=== PATIENT | female | born 1955 | race Caucasian/White ===

== ENCOUNTER 2016-09-21 04:44 | Emergency (ER) | payer OTHER ==
[~2016-09-21] VITALS: Ht 160 cm; Wt 90.7 kg
[~2016-09-21 04:44] MED LIST: AGGRENOX 25 MG1 EACH PO; AMLODIPINE10 MG PO; ASPIR 8181 MG PO; ATORVASTATIN CA80 MG PO; CIPRO500 M1 PO; DEXTROSE IV; GLUCOPHAGE1000 MG PO; GLUCOPHAGE500 MG PO; HEPARIN 2525000 UNIT IV; IBUPROFEN600 M1 PO; IBUPROFEN800 M1 PO; JANUMET 1000 MG1 TAB PO; LANTUS100 U/ML SC; LIPITOR80 MG PO; LISINOPRIL5 M1 PO; LOPRESSOR 12.12.5 MG PO; LOPRESSOR50 MG PO; LOTREL 10 MG-401 CAP PO; METFORMIN ER500 MG PO; METOPROLOL SUCC50 M1 PO; MULTIVITAMIN1 TAB PO; NITROGLYCERIN D25 MG IV; NITROSTAT 0.4MG1 BO2 SL; NOVOLIN R1000 UNIT2 SC; ONDANSETRON2 MG/ML IV; PERCOCET 5-3251 EACH PO; PLAVIX 75MG TAB75 MG PO; PRAVASTATIN20 MG PO; PRINIVIL10 MG PO; PROTONIX 40MG T40 MG PO; SODIUM CHLORIDE IV; ZOFRAN ODT4 M1 PO; ZOFRAN ODT4 M1 SL
[2016-09-21 04:53] VITALS: BP 152/92
[2016-09-21] MEDS ORDERED: ULTRAM50 M1 PO (05:15)
[2016-09-21] MEDS ORDERED: IBUPROFEN600 M1 PO (05:15)
[2016-09-21] MEDS ORDERED: BACLOFEN10 M1 PO (05:15)
--- NOTE | 2016-09-21 05:17 | ED NECK/BACK PAIN COMPLAINT ---
History of Present Illness General Chief Complaint: Lower Extremity Problems Stated Complaint: RIGHT LEG PAIN Source: patient, old records Exam Limitations: no limitations Vital Signs & Intake/Output Vital Signs & Intake/Output Vital Signs Date Time Temp Pulse Resp B/P Pulse O2 O2 Flow FiO2 Ox Delivery Rate 09/21 0500 Room Air 09/21 0453 96.9 70 16 152/92 99 Room Air Allergies Coded Allergies: NO KNOWN ALLERGIES (11/15/15) Reconcile Medications Amlodipine Besylate (Amlodipine) 10 MG TAB 1 TAB PO DAILY HEART (Reported) Atorvastatin Calcium (Lipitor) 80 MG TABLET 1 TAB PO DAILY HEART HEALTH ( Reported) Baclofen 10 MG TABLET 1-2 TAB PO TID PRN muscle strain Ciprofloxacin HCl (Cipro) 500 MG TABLET 1 TAB PO BID uti Clopidogrel Bisulfate (Plavix) 75 MG TABLET 1 TAB PO DAILY HEART HEALTH ( Reported) Dipyridamole W/ Aspirin (Aggrenox 25 MG-200 MG Capsule) 1 EACH CPMP.12HR 1 CAP PO BID HEART (Reported) Ibuprofen 800 MG TABLET 1 TAB PO Q6PRN PRN pain Ibuprofen 600 MG TABLET 1 TAB PO Q6PRN PRN pain with food Insulin Glargine, Recombinan (Lantus) 100 U/ML ARGENIS 30 UNITS SC QHS ENDOCRINE (Reported) Lisinopril 5 MG TABLET 1 TAB PO DAILY HEART (Reported) Metformin Hydochloride (Glucophage) 500 MG TAB 3 TAB PO DAILY DM (Reported) Metoprolol Succinate (Metoprolol Succinate XL) [address] 1 TAB PO DAILY HEART (Reported) Ondansetron (Zofran Odt) 4 MG TAB.RAPDIS 1 TAB SL TID PRN nausea Oxycodone HCl/Acetaminophen (Percocet 5-325 MG Tablet) 1 EACH TABLET 1-2 TAB PO Q6-PRN PRN severe pain Tramadol HCl (Ultram) 50 MG TABLET 1-2 TAB PO Q6PRN PRN severe pain Triage Note: 60YO FEMAEL TO TRIAGE W/CO R SIDED PAIN THAT BEGINS IN BUTTOCKS AND TRAVELS DOWN R LEG X 2 D. DENIES ANY TRAUMA OR INJURY. Triage Nurses Notes Reviewed? yes Onset: 2 days Duration: day(s):, constant, continues in ED Timing: recent history Quality/Severity: moderate, radiation, sharpness Location: gluteus Radiation: buttocks, upper legs, lower legs Context: unknown Method of Injury: unknown Loss of Consciousness: no loss of consciousness Modifying Factors: movement, pain medication, rest Associated Symptoms: muscle spasm LMP (ages 10-50): post menopausal : No Patient currently breastfeeds: No HPI: 2 days prior to admission patient was of right buttocks pain radiating to her upper and lower leg described as sharp constant worse with turning bending movement. She denies injury fever chills nausea vomiting diarrhea abdominal pain chest pain shortness breath headache dysuria rash bleeding change in motor sensory function change in bowel bladder habit. Past History Travel History Traveled to [place] past 21 day No Medical History Any Pertinent Medical History? 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 No Review of Systems Review of Systems Constitutional: Reports: no symptoms. Eyes: Reports: no symptoms. Ears, Nose, Throat, Mouth: Reports: no symptoms. Respiratory: Reports: no symptoms. Cardiovascular: Reports: no symptoms. Gastrointestinal/Abdominal: Reports: no symptoms. Musculoskeletal: Reports: see HPI, back pain, muscle pain. Skin: Reports: no symptoms. Neurological/Psychological: Reports: no symptoms. All Other Systems: Reviewed and Negative Physical Exam Physical Exam General Appearance: well developed/nourished, alert, awake, anxious, mild distress, obese Head: atraumatic, normal appearance Eyes: Bilateral: normal appearance, PERRL, EOMI. Ears, Nose, Throat, Mouth: hearing grossly normal, moist mucous membrane Neck: normal inspection, supple, full range of motion, normal alignment Respiratory: normal breath sounds, chest non-tender, no respiratory distress, quiet respiration, lungs clear Cardiovascular: regular rate/rhythm, normal peripheral pulses, norml femoral pulses equa Peripheral Pulses: 4+ carotid (R), 4+ carotid (L) Gastrointestinal: normal bowel sounds, soft, non-tender, no organomegaly Back: normal inspection, normal range of motion, decreased range of motion, muscle spasm, no vertebral tenderness Extremities: non-tender, normal range of motion Straight Leg Raising: Right: Negative. Left: Negative. Sensory: Medial Le: L4R, L4L. Top of Foot: 2: L5R, L5L. Sole of Foot: 2: SIR, MAXIMUS. Motor: Deficit L4 Right: No Deficit L4 Left: No Deficit L5 Right: No Deficit L5 Left: No Deficit S1 Right: No Deficit S1 Right: No DTR: Deficit L4 Left: No Deficit L4 Right: No Deficit S1 Left: No Deficit S1 Right: No Patellar: 3: L4 Right, L4 Left. Neurologic/Psych: awake, alert, oriented x 3, normal mood/affect Skin: intact, normal color, warm/dry Progress Differential Diagnosis: herniated disc, myofascial strain, sciatica Plan of Care: Current Medications Sig/Jean Marie Start time Last Medication Dose Stop Time Status Admin Cyclobenzaprine HCl 10 MG ONCE ONE 09/21 529 UNVr (Flexeril 10MG Tab) 09/21 530 Ibuprofen 600 MG ONCE ONE 09/21 529 UNVr (Motrin) 09/21 530 Departure Departure Time of Disposition: 513 Disposition: HOME OR SELF CARE Condition: Stable Clinical Impression Primary Impression: Piriformis syndrome of right side Referrals: DANIEL MCGHEE APRN (PCP/Family) Departure Forms: Customer Survey General Discharge Information Prescriptions: Current Visit Scripts Ibuprofen 1 TAB PO Q6PRN PRN pain #50 TAB with food Baclofen 1-2 TAB PO TID PRN muscle strain #30 TAB Tramadol HCl (Ultram) 1-2 TAB PO Q6PRN PRN severe pain #30 TAB
== END 2016-09-21 05:23 ==
LOC: ERH 04:44
DX: G57.01 Lesion of sciatic nerve, right lower limb (principal)

== ENCOUNTER 2016-12-29 21:36 | Observation (INO) | payer OTHER ==
[~2016-12-29] VITALS: Ht 160 cm; Wt 90.8 kg
[~2016-12-29 21:36] MED LIST changes: +BACLOFEN10 M1 PO; +ULTRAM50 M1 PO
[2016-12-29 21:59] LABS: ABSOLUTE BASOPHIL COUNT 0 /CUMM (0.0-0.2); ABSOLUTE EOSINOPHIL COUNT 0.2 /CUMM (0.0-0.7); ABSOLUTE GRANULOCYTE CT 3.7 /CUMM (1.4-6.5); ABSOLUTE LYMPH COUNT 1.9 /CUMM (1.2-3.4); ABSOLUTE MONOCYTE COUNT 0.6 /CUMM (0.10-0.60); BASOPHIL % 0.5 % (0.0-2.0); EOSINOPHIL % 2.5 % (0-5); GRANULOCYTE % 58.1 % (42.2-75.2); HEMATOCRIT 38.5 % (37-47); MEAN CORPUSCULAR HGB 29.3 PG (27.0-31.0); MEAN CORPUSCULAR HGB CONC 32.9 G/DL (33.0-37.0); MEAN PLATELET VOLUME 8.5 FL (7.4-10.4); PLATELET COUNT 189 /CUMM (130-400); RBC DISTRIBUTION WIDTH 16.3 % (11.5-14.5); RED BLOOD CELL CT 4.32 /CUMM (4.20-5.40); WHITE BLOOD CELL COUNT 6.4 /CUMM (4.8-10.8)
--- NOTE | 2016-12-29 23:02 | ED CARDIAC/CP/PALPITATIONS ---
History of Present Illness General Chief Complaint: Chest Pain Stated Complaint: CP X 1DAY Source: patient Exam Limitations: no limitations Vital Signs & Intake/Output Vital Signs & Intake/Output Vital Signs Date Time Temp Pulse Resp B/P B/P Pulse O2 O2 Flow FiO2 Mean Ox Delivery Rate 12/30 0105 98.4 76 20 130/80 93 Room Air 12/30 0032 98.6 85 20 110/62 94 Room Air 12/30 0029 Room Air 12/29 2155 88 22 150/83 ED Intake and Output 12/30 0000 12/29 1200 Intake Total Output Total Balance Patient 200 lb Weight Allergies Coded Allergies: NO KNOWN ALLERGIES (11/15/15) Reconcile Medications Amlodipine Besylate 10 MG TABLET 1 TAB PO DAILY BP (Reported) Aspirin (Ecotrin*) 81 MG TABLET.DR 2 TAB PO DAILY HEART/BLOOD (Reported) Atorvastatin Calcium 80 MG TABLET 1 TAB PO QPM CHOLESTEROL (Reported) Dipyridamole W/ Aspirin (Aggrenox 25 MG-200 MG Capsule) 1 EACH CPMP.12HR 1 CAP PO BID HEART (Reported) Insulin Glargine,Hum.rec.anlog (Lantus Solostar) 100 UNIT/ML (3 ML) INSULN.PEN 15 UNIT SC BID DM (Reported) Losartan Potassium 25 MG TABLET 1 TAB PO DAILY BP (Reported) Metformin HCl 500 MG TABLET 2 TAB PO BID DM (Reported) Metoprolol Succinate 50 MG TAB.ER.24H 1 TAB PO DAILY HEART/BP (Reported) Triage Note: PER PT CP X 24 HRS WITH RADIATION TO L ARM. CONSTANT 08/22. Triage Nurses Notes Reviewed? yes Onset: Abrupt Duration: day(s): (1), constant, continues in ED Timing: single episode today Quality/Severity: moderate, pressure Location: substernal Radiation: arms Activities at Onset: activity Prior Chest Pain/Card Workup: cardiac cath, heart attack Nitro Today/Relief: 0.4 mg x 1, provided by ED Aspirin Today: 325 mg x 1, provided by ED Associated Symptoms: nausea/vomiting LMP (ages 10-50): post menopausal : No Patient currently breastfeeds: No HPI: 61-year-old female past medical history of hypertension hyperlipidemia insulin- dependent diabetes and previous UT presents with chest pain. Patient statespain began at 11:30 yesterday morning while she was outside doing yard work and has been constant ever since. Pain is located in the center of her chest and radiates down the left arm to the level of the elbow. There are no alleviating or agony factors. She rates the pain as a 3 out of 10. She has not taken any medicine for the pain. Patient states she had an UT 2 years ago treated with stents. She feels that the pain she has today is very similar to previous UT. She reports associated nausea. No shortness of breath, sweats, chills, anxiety, back pain, abdominal pain or any other associated symptoms. (SAMY SANTAMARIA PA-C) Past History Travel History Traveled to [place] past 21 day No Medical History Any Pertinent Medical History? 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 No (SAMY SANTAMARIA PA-C) Review of Systems Review of Systems Constitutional: Reports: no symptoms. EENTM: Reports: no symptoms. Respiratory: Reports: no symptoms. Cardiovascular: Reports: see HPI, chest pain. GI: Reports: see HPI, nausea. Genitourinary: Reports: no symptoms. Musculoskeletal: Reports: no symptoms. Skin: Reports: no symptoms. Neurological/Psychological: Reports: no symptoms. Hematologic/Endocrine: Reports: no symptoms. Immunologic/Allergic: Reports: no symptoms. All Other Systems: Reviewed and Negative (SAMY SANTAMARIA PA-C) Physical Exam Physical Exam Cardiovascular: regular rate/rhythm, normal peripheral pulses Comments: General: Hemodynamically stable. Afebrile. Well-developed well-nourished person in no acute distress. Head: Atraumatic, normocephalic Eyes: EOMI bilaterally, PERRLA, conjunctiva are not injected, no discharge, no nystagmus, fundus grossly normal bilaterally Nose: Atraumatic, no rhinorrhea, mucosa is not erythematous, no epistaxis. Sinuses are non-tender Ears: TM pearly bains color bilaterally, external canal is clear, no discharge, hearing is normal Mouth: Appropriate dentition, no gingival bleeding, moist mucus membranes, no oral lesions, tonsils not erythematous or enlarged and free of exudate. Uvula rises midline. Neck: Supple, full active ROM, no lymphadenopathy, no midline tenderness to palpation, no thyromegaly, no tracheal deviation. Back: Non-tender, full active ROM, no scoliosis, no CVA tenderness Cardiovascular: regular rate and rhythm, no murmurs, rubs, or gallops. No JVD Respiratory: Chest is nontender. Regular respiratory rate and effort. No accessory muscle use. Lungs clear to auscultation bilaterally. Abdomen: Soft, non-tender, non-distended, no organomegaly. No rebound tenderness or guarding. Normoactive bowel sounds. Extremities: No edema. No gross deformities. No joint swelling. No calf swelling or tenderness. Full active and passive ROM. Strength 5/5 in upper and lower extremities. Peripheral pulses 2+ bilaterally, Patellar DTR 2+ Neuro: No confusion. Motor and sensory function is intact. Appropriate gait. Cerebellar function intact. Skin: Warm and dry. Appropriate turgor. No lesions or bruising. No appreciable rash on exposed skin. Core Measures ACS in differential dx? Yes ASA ordered for poss ACS? Yes-ordered Severe Sepsis Present: No Septic Shock Present: No (HINA REGAN,SAMY) Progress Differential Diagnosis: AMI, aortic dissection, atrial fibrillation, CHF/pulm edema, costochondritis, myocarditis, pericarditis, pneumonia, pneumothorax, pulmonary embolism, unstable angina Plan of Care: Orders Procedure Date/time Status Heart Healthy Diet 12/30 B Active TROPONIN LEVEL 12/30 1000 Active EKG 12/30 1000 Active TROPONIN LEVEL 12/30 0400 Active LIPID PANEL 12/30 0400 Active GLYCOSYLATED HGB 12/30 0400 Active CBC WITHOUT DIFFERENTIAL 12/30 0400 Active BASIC ELECTROLYTES PLUS BUN&CR 12/30 0400 Active EKG 12/30 0400 Active Pathway - chart 12/30 0102 Active House Staff 12/30 0102 Active Patient Data 12/30 010 Active Code Status 12/30 0102 Active Intake & Output 12/30 0029 Active Lab Add-on Test 12/30 UNK Active VTE Mechanical Prophylaxis 12/30 UNK Active Telemetry/Coffee Farmer 12/30 UNK Active FingerStick- Glucose 12/30 UNK Active ECHOCARDIOGRAM 12/30 UNK Active Patient Data 12/29 2339 Active Saline Lock 12/[address] in observation 12/29 233 Active Misc Message 12/29 233 Active ED Holding Orders 12/29 2336 Active Vital Signs 12/29 2336 Active Activity/Ambulation 12/29 233 Active Code Status 12/29 2336 Complete Add-on Test (ER Only) 12/29 2329 Active Add-on Test (ER Only) 12/30 2323 Active Telemetry/Coffee Farmer 12/30 2323 Active URINALYSIS 12/30 2323 Active MAGNESIUM 12/29 2149 Complete B-TYPE NATRIURETIC PEP (BNP) 12/29 2149 Complete TROPONIN LEVEL 12/30 2147 Complete D-DIMER 12/30 2147 Complete COMPREHENSIVE METABOLIC PANEL 12/30 2147 Complete CBC WITHOUT DIFFERENTIAL 12/30 2147 Complete EKG 12/29 2136 Active Current Medications Sig/Jean Marie Start time Last Medication Dose Stop Time Status Admin Atorvastatin Calcium 80 MG QPM 12/30 2200 UNVr (Lipitor) Amlodipine Besylate 10 MG DAILY 12/30 1000 UNVr (Norvasc) Aspirin Buffered 162 MG DAILY 12/30 1000 UNVr (Ecotrin) Dipyridamole/Aspirin 1 CAP BID 12/30 1000 UNVr (Aggrenox) Enoxaparin Sodium 40 MG DAILY 12/30 1000 UNVr (Lovenox) Losartan Potassium 25 MG DAILY 12/30 1000 UNVr (Cozaar) Metoprolol Succinate 50 MG DAILY 12/30 1000 AC (Toprol Xl) Insulin Aspart 0 TIDAC 12/30 0800 UNVr (NovoLOG) Acetaminophen 650 MG Q6P PRN 12/30 0115 UNVr (Tylenol) Ibuprofen 600 MG Q6P PRN 12/30 0115 UNVr (Motrin) Magnesium Oxide 400 MG BID 12/30 0100 UNVr (Mag-Ox) Laboratory Tests 12/29/16 2150: Anion Gap 13, Estimated GFR > 60, BUN/Creatinine Ratio 24.4, Glucose 281 H, Calcium 10.6 H, Magnesium 1.0 L, Total Bilirubin 0.7, AST 32, ALT 49, Alkaline Phosphatase 58, Troponin I < 0.01, Wlc-K-Wsoyuvxrodb Pept 49.8, Total Protein 7.2, Albumin 4.6, Globulin 2.6, Albumin/Globulin Ratio 1.8, CBC w Diff NO MAN DIFF REQ, RBC 4.32, MCV 89.0, MCH 29.3, RDW 16.3 H, MPV 8.5, Gran % 58.1, Lymphocytes % 29.7, Monocytes % 9.2, Eosinophils % 2.5, Basophils % 0.5, Absolute Granulocytes 3.7, Absolute Lymphocytes 1.9, Absolute Monocytes 0.6, Absolute Eosinophils 0.2, Absolute Basophils 0, PUBS MCHC 32.9 L 12/29/16 2148: D-Dimer High Sensitivty < 200 Patient seen and evaluated. She is nontoxic-appearing and stable. First troponin is negative. EKG doesn't show any acute changes. Spoke with Dr. Lazo. Due to patient's significant medical history and chest pain similar to previous UT patient be brought in for observation to rule out acute coronary syndrome. She'll be given 325 of aspirin and nitroglycerin. She will have basic blood work including repeat EKGs and troponins. Patient states she is not feeling better after receiving nitroglycerin AND IT ACTUALLY INCREASED HER PAIN. Patient will be admitted for telemetry for serial troponins and EKGs monitoring of vital signs and cardiology consult. (HINA REGAN,SAMY) Diagnostic Imaging: Viewed by Me: Radiology Read. Discussed w/RAD: Radiology Read. Radiology Impression: PATIENT: WILMA MILLS PRESENT AGE: 61 PATIENT ACCOUNT NO: [id number] : 56 LOCATION: [facility] ORDERING PHYSICIAN: SAMY SANTAMARIA PA-C SERVICE DATE: 12/29/16 EXAM TYPE: RAD - XRY- PORTABLE CHEST XRAY EXAMINATION: XR PORTABLE CHEST CLINICAL INFORMATION: Chest pain, shortness of breath COMPARISON: Chest x-ray 01/03/2015 TECHNIQUE: Portable frontal view of the chest was obtained. 11:26 PM FINDINGS: No significant abnormality is noted involving the heart, lungs, mediastinum, bony thorax or soft tissues. IMPRESSION: Unremarkable examination. DICTATED BY: JHOANA BORGES MD DATE/TIME DICTATED:12/29/162342 PASTER SUPERVISOR:ADRIEN DATE/TIME TRANSCRIBED:12/29/162342 Initial ED EKG: SINUS RHYTHM, FIRST-DEGREE av BLOCK, PROBABLE LEFT ATRIAL ABNORMALITY, LEFT ANTERIOR FASCICULAR BLOCK, ANTERIOR INFARCT AGE INDETERMINATE Prior EKG: unchanged (SAMY SANTAMARIA PA-C) Departure Departure Disposition: STILL A PATIENT Condition: Stable Clinical Impression Primary Impression: Chest pain Qualifiers: Chest pain type: unspecified Qualified Code: R07.9 - Chest pain, unspecified Referrals: DANIEL MCGHEE APRN (PCP/Family) Departure Forms: Customer Survey General Discharge Information Observation Note Rationale for Observation: My rational for observation is as follows . (SAMY SANTAMARIA PA-C) Observation Note Spoke With: SHEILA LAZO MD Physician Advisor Notified: MARY MENDOZA,ABRAN Grimes Place Patient In: Non-ED OBS Care Area Rationale for Observation: My rational for observation is as follows [exertional chest pain with risk factors. Patient to be placed in telemetry observation for cardiology evaluation and serial enzymes.]. PA/LONGWALL SHEARER OPERATOR Co-Sign Statement Statement: ED Attending supervision documentation- [X] I saw and evaluated the patient. I have also reviewed all the pertinent lab results and diagnostic results. I agree with the findings and the plan of care as documented in the PA's/LONGWALL SHEARER OPERATOR's documentation. [X] I have reviewed the ED Record and agree with the PA's/LONGWALL SHEARER OPERATOR's documentation. [] Additions or exceptions (if any) to the PAs/LONGWALL SHEARER OPERATOR's note and plan are summarized below: [] (MARY MENDOZA,ABRAN Grimes) Critical Care Note Critical Care Note Critical Care Time: non-applicable (SAMY SANTAMARIA PA-C)
[2016-12-29] MEDS ORDERED: METOPROLOL SUCC50 M2 PO (23:11)
[2016-12-29] MEDS ORDERED: METFORMIN HCL500 M3 PO (23:11)
[2016-12-29] MEDS ORDERED: LANTUS SOL100 UNIT/1 SC (23:12)
[2016-12-29] MEDS ORDERED: ATORVASTATIN CA80 M1 PO (23:12)
[2016-12-29] MEDS ORDERED: LOSARTAN POTASS25 M1 PO (23:12)
[2016-12-29] MEDS ORDERED: AMLODIPINE BESY10 M1 PO (23:13)
[2016-12-29] MEDS ORDERED: ASPIRIN EC81 M1 PO (23:14)
--- NOTE | 2016-12-29 23:48 | RADIOLOGY REPORT ---
EXAMINATION: XR PORTABLE CHEST CLINICAL INFORMATION: Chest pain, shortness of breath COMPARISON: Chest x-ray 01/03/2015 TECHNIQUE: Portable frontal view of the chest was obtained. 11:26 PM FINDINGS: No significant abnormality is noted involving the heart, lungs, mediastinum, bony thorax or soft tissues. IMPRESSION: Unremarkable examination.
--- NOTE | 2016-12-30 00:30 | History & Physical ---
CHANDNI COATS MD 12/30/16 0029: General Information and HPI MD Statement: I have seen and personally examined WILMA MILLS and documented this H&P. The patient is a 61 year old F who presented with a patient stated chief complaint of chest pain. Source of Information: patient Exam Limitations: no limitations History of Present Illness: 61 year old female with past medical history significant for hypertension, hyperlipidemia, stroke, coronary artery disease and myocardial infarction s/p stent placement presents with chest pain. The patient complaints of chest pain for the past 24 hours. The chest pain waxes and wanes, describes it as pressure like and radiating into the left arm to the level of her elbow. She says this is exactly how her prior myocardial infarction felt a year ago except that radiated all the way to her left hand. She said the chest pain began yesterday after doing yard work but it did not resolve with rest. She denies any cough, dyspnea, diaphoresis, palpitations or fever. She reports slight nausea and headache with the chest pain. She typically has no limitations in terms of her exercise tolerance. Her labor delivery rn is Beto López in [place], reports her last stress test was before her myocardial infarction and can't remember her last echocardiogram. Her neurologist is Ike Torres in [place]. She says she has some residual left sided numbness, tingling and balance problems from her stroke two years ago but is still able to work as a [employer] Her is Haim, . Allergies/Medications Allergies: Coded Allergies: NO KNOWN ALLERGIES (11/15/15) Home Med list Amlodipine Besylate 10 MG TABLET 1 TAB PO DAILY BP (Reported) Aspirin (Ecotrin*) 81 MG TABLET.DR 2 TAB PO DAILY HEART/BLOOD (Reported) Atorvastatin Calcium 80 MG TABLET 1 TAB PO QPM CHOLESTEROL (Reported) Dipyridamole W/ Aspirin (Aggrenox 25 MG-200 MG Capsule) 1 EACH CPMP.12HR 1 CAP PO BID HEART (Reported) Insulin Glargine,Hum.rec.anlog (Lantus Solostar) 100 UNIT/ML (3 ML) INSULN.PEN 15 UNIT SC BID DM (Reported) Losartan Potassium 25 MG TABLET 1 TAB PO DAILY BP (Reported) Metformin HCl 500 MG TABLET 2 TAB PO BID DM (Reported) Metoprolol Succinate 50 MG TAB.ER.24H 1 TAB PO DAILY HEART/BP (Reported) Compliance With Home Meds: GOOD Past History Travel History Traveled to [place] past 21 day No Medical History Neurological: CVA EENT: NONE Cardiovascular: CAD (W STENT), hypertension, hyperlipidemia, myocardial infarction, NSTEMI, CARIAC STENT X 1 Respiratory: NONE Gastrointestinal: NONE Hepatic: NONE Renal: nephrolithiasis Musculoskeletal: NONE Psychiatric: depression Endocrine: diabetes Blood Disorders: NONE Cancer(s): NONE ACCOUNTING RECONCILIATION CLERK/Reproductive: HIGH RISK PREGNANCIES PRE-ECLAMPSIA History of MRSA: No History of VRE: No History of CDIFF: No Surgical History Surgical History: Past Family/Social History Family History Relations & Conditions if any BROTHER FH: heart disease MOTHER FH: heart disease FHx: stroke FATHER FH: heart disease SON FH: heart disease Psychosocial History Who Do You Live With? family Services at Home: None Primary Language: Vietnamese Living Will? no Power of Art Framing Manager/HCP? no Functional Ability ADLs Independent: dressing, eating, toileting, bathing. Ambulation: independent IADLs Independent: shopping, housework, finances, food prep, telephone, transportation , medication admin. Review of Systems Review of Systems Constitutional: Reports: see HPI. Exam & Diagnostic Data Last 24 Hrs of Vital Signs/I&O Vital Signs Date Time Temp Pulse Resp B/P B/P Pulse O2 O2 Flow FiO2 Mean Ox Delivery Rate 12/30 0105 98.4 76 20 130/80 93 Room Air 12/30 0032 98.6 85 20 110/62 94 Room Air 12/30 0029 Room Air 12/29 2155 88 22 150/83 Intake & Output 12/30 0800 12/30 0000 12/29 1600 Intake Total Output Total Balance Patient 200 lb Weight Physical Exam General Appearance Alert, Oriented X3, Cooperative, No Acute Distress Skin No Rashes, No Breakdown Skin Temp/Moisture Exam: Warm/Dry HEENT Atraumatic, PERRLA, EOMI, Mucous Membr. moist/pink Neck Supple, +2 Carotid Pulse wo Bruit Cardiovascular Regular Rate, Normal S1, Normal S2, No Murmurs Lungs Clear to Auscultation, Normal Air Movement Abdomen Normal Bowel Sounds, Soft, No Tenderness, No Masses Neurological Normal Speech, Strength at 5/5 X4 Ext, Normal Tone, Sensation Intact, Cranial Nerves 3-12 NL Extremities No Clubbing, No Edema, Normal Pulses, No Tenderness/Swelling Vascular Normal Pulses, Pulses Symmetrical Last 24 Hrs of Labs/Crow: Laboratory Tests 12/29/160: Anion Gap 13, Estimated GFR > 60, BUN/Creatinine Ratio 24.4, Glucose 281 H, Calcium 10.6 H, Magnesium 1.0 L, Total Bilirubin 0.7, AST 32, ALT 49, Alkaline Phosphatase 58, Troponin I < 0.01, Bol-M-Wsikaptqkro Pept 49.8, Total Protein 7.2, Albumin 4.6, Globulin 2.6, Albumin/Globulin Ratio 1.8, CBC w Diff NO MAN DIFF REQ, RBC 4.32, MCV 89.0, MCH 29.3, RDW 16.3 H, MPV 8.5, Gran % 58.1, Lymphocytes % 29.7, Monocytes % 9.2, Eosinophils % 2.5, Basophils % 0.5, Absolute Granulocytes 3.7, Absolute Lymphocytes 1.9, Absolute Monocytes 0.6, Absolute Eosinophils 0.2, Absolute Basophils 0, PUBS MCHC 32.9 L 12/29/162147: D-Dimer High Sensitivty < 200 Diagnostic Data EKG Results LAFB, 1st degree block CXR Results unremarkable Assessment/Plan Assessment: 61 year old female with past medical history significant for hypertension, hyperlipidemia, stroke, coronary artery disease and myocardial infarction s/p stent placement presents with chest pain. 1. Chest pain: no acute EKG changes, aspirin and nitro given in ED Observe on telemetry for arrhythmia Serial troponins/EKGs to rule out acute coronary syndrome Cardiology consult ASA, metoprolol, losartan, statin, nitro and morphine prn Echocardiogram Possible outpatient stress testing 2. Diabetes: Check hemoglobin A1C Accuchecks TIDAC/HS Hold oral hypoglycemics Insulin sliding scale 3. History of CVA: Continue aggrenox 4. Hypertension: Continue norvasc 10mg PO QD 5. Hyperlipidemia: Check lipid panel Continue lipitor 80mg PO QD Heart healthy DVT ppx-lovenox Full code As Ranked By This Provider Problem List: 1. Chest pain Qualifiers Chest pain type: unspecified Qualified Code: R07.9 - Chest pain, unspecified 2. CAD (coronary artery disease) 3. Diabetes 4. Hyperlipidemia 5. Hypertension Core Measures/Miscellaneous Acute Coronary Syndrome ACS Diagnosis: No Cerebrovascular Accident CVA/TIA Diagnosis: No Congestive Heart Failure CHF Diagnosis: No VTE (View Protocol) VTE Risk Factors: Acute medical illness, Age > 40 [facility] prophylaxis d/t: No contraindications No VTE Pharm Prophylaxis d/t: No contraindications VTE Diagnosis: No VTE Type: NONE VTE Confirmed by (Test): NONE Sepsis (View Protocol) Severe Sepsis Present: No Septic Shock Septic Shock Present: No Miscellaneous Documentation Attending Case Discussed With: SHEILA LAZO MD Primary Care Physician: DANIEL MCGHEE APRN Patient sees these Specialists cardiology/neurology Level of Patient Care: Telemetry MICHEL WALKER 12/30/16 0107: Resident Review Statement Resident Statement: examined this patient, discussed with unpaid intern, agreed with unpaid intern Other Findings: Patient is 61-year-old female with past medical history significant for hypertension, dyslipidemia, CAD status post stent placement in 2014, history of CVA with residual gait imbalance in 2016 came with chief complaint of off and on substernal chest pain since yesterday when she was working outside in her backyard. Her chest pain for 3 out of 10 and it was radiating to left arm onto her elbow and she perceived as similar when she had last heart attack. She denied any nausea, vomiting, palpitations, dizziness, shortness of breath, any urinary or bowel complaints. Her symptoms were concerning to her that she decided to come to ER. Vital signs on admission were temperature 98.6, pulse 88, respiratory rate 22, blood pressure 150/83 and she was saturating 94% on room air. Labs were WBC count 6.4, hemoglobin 12.7, hematocrit 35, platelet count 189, Sodium 139, potassium 3.8, BUN/creatinine 22, creatinine 0.9, blood sugar 281, magnesium 1.0, initial troponin was negative EKG showed no acute ST-T wave changes Chest x-ray was normal Physical examination Alert and oriented 3 Head atraumatic Neck supple no JVD Chest dated auscultate Heart S1-S2 normal with no added sounds Abdomen soft with no organomegaly Extremities showed no edema or cyanosis Neurological examination showed no neurological deficit Assessment and plan 61-year-old female with history of hypertension, insulin-dependent diabetes, dyslipidemia came with chief complaint of substernal chest pain, no EKG changes and negative troponins but given her history we will observe patient on telemetry floor for 24 hours to rule out ACS Problem list 1. Substernal chest pain ACS next to rule out 2. History of CAD 3. History of hypertension 4. History of his with dependent diabetes 5. History of CVA Plan We will keep patient on telemetry floor for 24 hour observation We will trend troponins and EKG A cardiology evaluation in a.m. Patient was given aspirin and nitroglycerin in ED We will give patient nitroglycerin to keep her pain-free as needed We will continue all her home medications including WEI inhibitor as, metoprolol , aspirin, Aggrenox, Accu-Cheks We will hold metformin and will start patient on NovoLog according to sliding scale We will send lipid profile and hemoglobin A1c We will do echocardiogram Patient might need inpatient/outpatient stress test Heart healthy diet Pharmacological DVT prophylaxis Patient is full code SHEILA LAZO MD 12/30/16 0922: Attending MD Review Statement Attending Statement Attending MD Statement: examined this patient, discuss w/resident/PA/ACUTE COORDINATOR, agreed w/resident/PA/ACUTE COORDINATOR, discussed with family, reviewed EMR data (avail), discussed with nursing, reviewed images, amended to note Attending Assessment/Plan: The patient is a 61-year-old female with history of coronary artery disease, hypertension, hyperlipidemia, and CAD. She had a myocardial infarction and stent placement 2 years ago. Her labor delivery rn is Dr. Douglas in [place]. She presents with complaint of chest pain. She was working in her chart, when she developed pressure radiating to the left arm. Was present for much of the day and continued through most of the night. It was a 7 out of 10 in severity. She is now pain-free. She has not had a stress test since prior to her myocardial infarction 2 years ago. No syncope. No orthopnea. No palpitations. Review of systems: No fever. No chills. No rash. No tremor. All other systems were reviewed, and were noted to be negative. Laboratory Tests 12/30 12/30 1010 0830 Chemistry Troponin I (< 0.11 ng/ml) 0.06 Urines Urine Color (YEL,AMB,STR) YEL Urine Clarity (CLEAR) CLEAR Urine pH (5.0 - 8.0) 6.0 Ur Specific Mammoth (1.001 - 1.035) 1.025 Urine Protein (NEG,<30 MG/DL) NEG Urine Ketones (NEG) TRACE H Urine Nitrite (NEG) NEG Urine Bilirubin (NEG) NEG Urine Urobilinogen (0.1 - 1.0 EU/dl) 0.2 Ur Leukocyte Esterase (NEG) NEG Ur Microscopic EXAM NOT REQUIRED Urine Hemoglobin (NEG) NEG Urine Glucose (N MG/DL) >=1000 H 12/30 12/29 0410 2150 Chemistry Sodium (137 - 145 mmol/L) 140 139 Potassium (3.5 - 5.1 mmol/L) 4.1 3.8 Chloride (98 - 107 mmol/L) 103 100 Carbon Dioxide (22 - 30 mmol/L) 23 25 Anion Gap (5 - 16) 13 13 BUN (7 - 17 mg/dL) 20 H 22 H Creatinine (0.5 - 1.0 mg/dL) 0.7 0.9 Estimated GFR (>60 ml/min) > 60 > 60 BUN/Creatinine Ratio (7 - 25 %) 28.6 H 24.4 Glucose (65 - 99 mg/dL) 281 H Hemoglobin A1c (4.2 - 5.8 %) 10.4 H Calcium (8.4 - 10.2 mg/dL) 10.6 H Magnesium (1.6 - 2.3 mg/dL) 1.0 L Total Bilirubin (0.2 - 1.3 mg/dL) 0.7 AST (14 - 36 U/L) 32 ALT (9 - 52 U/L) 49 Alkaline Phosphatase (<127 U/L) 58 Troponin I (< 0.11 ng/ml) 0.02 < 0.01 Cpy-D-Cbhetkhvguf Pept (<125 pg/mL) 49.8 Total Protein (6.3 - 8.2 g/dL) 7.2 Albumin (3.5 - 5.0 g/dL) 4.6 Globulin (1.9 - 4.2 gm/dL) 2.6 Albumin/Globulin Ratio (1.1 - 2.2 %) 1.8 Triglycerides (<150 mg/dL) 246 H Cholesterol (<200 MG/DL) 163 LDL Cholesterol, Calc (65 - 129 mg/dL) 64 L HDL Cholesterol (40 - 60 mg/dL) 50 Cholesterol/HDL Ratio (0.00 - 4.23 %) 3 25-OH Vitamin D Total (30 - 100 ng/ml) 25.9 L PTH Intact (13.8 - 85 pg/ml) 18.7 Hematology CBC w Diff NO MAN DIFF REQ NO MAN DIFF REQ WBC (4.8 - 10.8 /CUMM) 7.4 6.4 RBC (4.20 - 5.40 /CUMM) 4.19 L 4.32 Hgb (12.0 - 16.0 G/DL) 12.4 12.7 Hct (37 - 47 %) 37.4 38.5 MCV (81.0 - 99.0 FL) 89.2 89.0 MCH (27.0 - 31.0 PG) 29.7 29.3 RDW (11.5 - 14.5 %) 15.9 H 16.3 H Plt Count (130 - 400 /CUMM) 172 189 MPV (7.4 - 10.4 FL) 9.0 8.5 Gran % (42.2 - 75.2 %) 57.0 58.1 Lymphocytes % (20.5 - 51.1 %) 30.5 29.7 Monocytes % (1.7 - 9.3 %) 10.0 H 9.2 Eosinophils % (0 - 5 %) 1.9 2.5 Basophils % (0.0 - 2.0 %) 0.6 0.5 Absolute Granulocytes (1.4 - 6.5 /CUMM) 4.2 3.7 Absolute Lymphocytes (1.2 - 3.4 /CUMM) 2.2 1.9 Absolute Monocytes (0.10 - 0.60 /CUMM) 0.7 H 0.6 Absolute Eosinophils (0.0 - 0.7 /CUMM) 0.1 0.2 Absolute Basophils (0.0 - 0.2 /CUMM) 0 0 PUBS MCHC (33.0 - 37.0 G/DL) 33.3 32.9 L 12/29 2148 Coagulation D-Dimer High Sensitivty (0 - 243 ng/ml) < 200 Physical examination: Gen: The patient is in no acute distress HEENT: Normal nose, ears, and oropharynx. Pupils equal bilaterally. Conjunctiva normal. Neck: Supple with no JVD, no masses, and no thyromegaly Lungs: Clear to auscultation with normal respiratory effort Heart: RRR, S1, S2, 1/6 systolic murmur. No peripheral edema, 2+ pulses in the lower extremities bilaterally Abdomen: Soft, nontender, no masses. No hepatomegaly. No splenomegaly Extremities: No clubbing or cyanosis. Normal muscle strength in the upper and lower extremities Skin: Normal skin turgor with no skin ulcers or lesions noted. Neuro: Cranial nerves intact. Sensation intact Psych: Alert and oriented 3 with appropriate affect Chest x-ray: Negative EKG tracing is independently reviewed, and reveals normal sinus rhythm with no acute ischemic changes Assessment: 1. History of known CAD 2. History of CVA 3. Chest pain, rule out acute coronary syndrome Plan: * Check third troponin to rule out myocardial infarctions * Exercise nuclear stress test * Into cardiac medications. * If no significant ischemia is seen on the stress test, and the third troponin is negative, we will discharge the patient to home. * Follow up with Dr. Douglas in one week.
[2016-12-30 01:05] VITALS: BP 130/80
[2016-12-30 04:59] LABS: ABSOLUTE BASOPHIL COUNT 0 /CUMM (0.0-0.2); ABSOLUTE EOSINOPHIL COUNT 0.1 /CUMM (0.0-0.7); ABSOLUTE GRANULOCYTE CT 4.2 /CUMM (1.4-6.5); ABSOLUTE LYMPH COUNT 2.2 /CUMM (1.2-3.4); ABSOLUTE MONOCYTE COUNT 0.7 /CUMM (0.10-0.60); BASOPHIL % 0.6 % (0.0-2.0); EOSINOPHIL % 1.9 % (0-5); HEMATOCRIT 37.4 % (37-47); MEAN CORPUSCULAR HGB 29.7 PG (27.0-31.0); MEAN CORPUSCULAR HGB CONC 33.3 G/DL (33.0-37.0); MEAN CORPUSCULAR VOLUME 89.2 FL (81.0-99.0); PLATELET COUNT 172 /CUMM (130-400); RBC DISTRIBUTION WIDTH 15.9 % (11.5-14.5); RED BLOOD CELL CT 4.19 /CUMM (4.20-5.40); WHITE BLOOD CELL COUNT 7.4 /CUMM (4.8-10.8)
--- NOTE | 2016-12-30 07:20 | PN- Housestaff ---
Subjective Follow-up For: 1. Chest pain 2. CAD (coronary artery disease) 3. Diabetes 4. Hyperlipidemia 5. Hypertension Complaints: pain scale (0-10) Tele-Events Since Last Visit: NSR 70-74 Objective Last 24 Hrs of Vital Signs/I&O Vital Signs Date Time Temp Pulse Resp B/P B/P Pulse O2 O2 Flow FiO2 Mean Ox Delivery Rate 12/30 0105 98.4 76 20 130/80 93 Room Air 12/30 0032 98.6 85 20 110/62 94 Room Air 12/30 0029 Room Air 12/29 2155 88 22 150/83 Intake & Output 12/30 0800 12/30 0000 12/29 1600 Intake Total Output Total Balance Patient 200 lb 200 lb Weight Assessment/Plan Assessment: 61 year old female with past medical history significant for hypertension, hyperlipidemia, stroke, coronary artery disease and myocardial infarction s/p stent placement presents with chest pain. 1. Chest pain: no acute EKG changes, aspirin and nitro given in ED Observe on telemetry for arrhythmia Serial troponins/EKGs to rule out acute coronary syndrome Cardiology consult ASA, metoprolol, losartan, statin, nitro and morphine prn Echocardiogram Possible outpatient stress testing 2. Diabetes: Check hemoglobin A1C Accuchecks TIDAC/HS Hold oral hypoglycemics Insulin sliding scale 3. History of CVA: Continue aggrenox 4. Hypertension: Continue norvasc 10mg PO QD 5. Hyperlipidemia: Check lipid panel Continue lipitor 80mg PO QD Heart healthy DVT ppx-lovenox Full code Problem List: 1. CAD (coronary artery disease) 2. Diabetes 3. Hyperlipidemia 4. Hypertension 5. Chest pain Pain Ratin Pain Location: MID CHEST Pain Goal: Pain 4 or less
[2016-12-30 07:25] VITALS: BP 130/80
--- NOTE | 2016-12-30 07:38 | PN-Observation ---
Assessment/Plan Assessment: 61 year old female with past medical history significant for hypertension, hyperlipidemia, stroke, coronary artery disease and myocardial infarction s/p stent placement presents with chest pain. #Chest pain: - no acute EKG changes -Observe on telemetry for arrhythmia -Serial troponins/EKGs were normal which ruled out acute coronary syndrome Cardiology consult ASA, metoprolol, losartan, statin, nitro and morphine prn stress test with nuclear imaging #Diabetes: hemoglobin A1C 10.4 Accuchecks TIDAC/HS Hold oral hypoglycemics Insulin sliding scale # History of CVA: Continue aggrenox # Hypertension: Continue norvasc 10mg PO QD #Hyperlipidemia: Check lipid panel Continue lipitor 80mg PO QD Heart healthy DVT ppx-lovenox Full code Problem List: 1. CAD (coronary artery disease) 2. Chest pain 3. Hypertension 4. Hyperlipidemia 5. Diabetes 6. Stented coronary artery DVT/Prophylaxis: pharmacological Subjective Follow-up For: 1. Chest pain 2. CAD (coronary artery disease) 3. Diabetes 4. Hyperlipidemia 5. Hypertension Complaints: pain scale (0-10) Tele-Events Since Last Visit: NSR 70- Subjective: I have personally examined the patient at bedside she was laying down comfortably in no acute distress breathing room air, she reported that her chest pain went down to 0 Review of Systems Constitutional: Denies: no symptoms. Cardiovascular: Denies: no symptoms, see HPI. Respiratory: Denies: no symptoms. Gastrointestinal: Denies: no symptoms. Objective Last 24 Hrs of Vital Signs/I&O Vital Signs Date Time Temp Pulse Resp B/P B/P Pulse O2 O2 Flow FiO2 Mean Ox Delivery Rate 12/30 1321 72 130/74 12/30 1308 72 130/74 12/30 1308 72 130/74 12/30 1308 72 130/74 12/30 0725 98.9 75 20 130/80 98 Room Air 12/30 0105 98.4 76 20 130/80 93 Room Air 12/30 0032 98.6 85 20 110/62 94 Room Air 12/30 0029 Room Air 12/29 2155 88 22 150/83 Intake & Output 12/30 1600 12/30 0800 12/30 0000 Intake Total Output Total 700 Balance -700 Output, Urine 700 Patient 200 lb 200 lb Weight Physical Exam General Appearance: Alert, Oriented X3, Cooperative, No Acute Distress Skin: No Rashes, No Breakdown, No Significant Lesion Skin Temp/Moisture Exam: Warm/Dry HEENT: Atraumatic, PERRLA, EOMI, Mucous Membr. moist/pink Neck: Supple, No JVD Cardiovascular: Regular Rate, Normal S1, Normal S2, No Murmurs Lungs: Clear to Auscultation, Normal Air Movement Abdomen: Normal Bowel Sounds, Soft, No Tenderness Neurological: Normal Speech, Strength at 5/5 X4 Ext, Normal Tone Extremities: No Clubbing, No Cyanosis, No Edema
--- NOTE | 2016-12-30 09:12 | Patient Discharge Instructions ---
Discharge Instructions General Discharge Information You were seen/treated for: chest pain Special Instructions: 1. please f/u with your marketing sales representative within 1 week of discharge. 2. please f/u with your pcp within 1 week of discharge. Diet Recommended Diet: Heart Healthy Activity Full Activity/No Limits: Yes (as tolerated) Acute Coronary Syndrome Inclusion Criteria At DC or during hospital stay patient has or had the following: ACS DIAGNOSIS No Discharge Core Measures Meds if any: Prescribed or Continued at Discharge Meds if any: NOT Prescribed or Continued at Discharge Congestive Heart Failure Inclusion Criteria At DC or during hospital stay patient has or had the following: CHF DIAGNOSIS No Discharge Core Measures Meds if any: Prescribed or Continued at Discharge Meds if any: NOT Prescribed or Continued at Discharge Cerebrovascular accident Inclusion Criteria At DC or during hospital stay patient has or had the following: CVA/TIA Diagnosis No Discharge Core Measures Meds if any: Prescribed or Continued at Discharge Meds if any: NOT Prescribed or Continued at Discharge Venous thromboembolism Inclusion Criteria VTE Diagnosis No VTE Type NONE VTE Confirmed by (Test) NONE Discharge Core Measures - Per Current guidelines, there needs to be overlap - treatment for the first 5 days of Warfarin therapy. - If discharged on Warfarin prior to 5 days of - overlap therapy, the patient will need to be - assessed for post discharge needs including - *Post discharge parental anticoagulation - *Warfarin and/or parental anticoagulation education - *Follow up date to check INR post discharge At least 5 days overlap therapy as Inpatient No Meds if any: Prescribed or Continued at Discharge Note: Overlap Therapy is Warfarin and Anticoagulant Meds if any: NOT Prescribed or Continued at Discharge
[2016-12-30 13:21] VITALS: BP 130/74
[2016-12-30 14:21] VITALS: BP 118/80
--- NOTE | 2016-12-30 14:40 | Discharge Summary ---
Visit Information Visit Dates Admission Date: 12/29/16 Discharge Date: 12/30/16 Hospital Course Course Attending Physician: SHEILA LAZO MD Primary Care Physician: DANIEL MCGHEE APRN [facility] Course: 61 year old female with past medical history significant for hypertension, hyperlipidemia, stroke, coronary artery disease and myocardial infarction s/p stent placement presented with chest pain. pertienent labs on admission: Anion Gap 13, Estimated GFR > 60, BUN/Creatinine Ratio 24.4, Glucose 281 H, Calcium 10.6 H, Magnesium 1.0 L, Total Bilirubin 0.7, AST 32, ALT 49, Alkaline Phosphatase 58, Troponin I < 0.01, Tyc-W-Eeed[place]fbtka Pept 49.8, Total Protein 7.2, Albumin 4.6, Globulin 2.6, Albumin/Globulin Ratio 1.8, CBC w Diff NO MAN DIFF REQ, RBC 4.32, MCV 89.0, MCH 29.3, RDW 16.3 H, MPV 8.5, Gran % 58.1, Lymphocytes % 29.7, Monocytes % 9.2, Eosinophils % 2.5, Basophils % 0.5, Absolute Granulocytes 3.7, Absolute Lymphocytes 1.9, Absolute Monocytes 0.6, Absolute Eosinophils 0.2, Absolute Basophils 0, PUBS MCHC 32.9 L pertinent imaging: EKG Results LAFB, 1st degree block CXR Results unremarkable Spect scan cardiac stress test: Markedly abnormal study. Fixed perfusion abnormalities are present in two separate foci, one involving the apical septal and mid anteroseptal garza and the other involving the lateral, inferolateral and basal inferior garza. No regions of reversible ischemia are present. There are associated significant wall motion abnormalities most severely in the basal inferior wall. The left ventricular ejection fraction is mildly depressed. #Chest pain: the patient presented to the ED with chest pain after exertion which she mentioned was very similar to the pain she had on her previous ID one year ago. there was no acute EKG changes she was Observed on telemetry for 24 hours for arrhythmia. Serial troponins/EKGs were normal which ruled out acute coronary syndrome. she was treated with ASA, metoprolol, losartan, statin, nitro and morphine prn.stress test with nuclear imaging only showed fixed perfusion abnormalities and mildly decreased left ventricular ejection fraction.She was advised to follow up with her manager lvn in 1 week of discharge. #Diabetes: - Patient had a history of diabeted. -her hemoglobin A1C was 10.4. Her oral hypoglycemics were held. She was placed on insulin sliding scale. # History of CVA: the patient had a history of CVA. She was kept on aggrenox. # Hypertension: -Patient had a histroy of HTN. - She was kept on her home dose of norvasc . #Hyperlipidemia: - The patient had a history of hyperlipedemia. Continue home dose of lipitor. Heart healthy DVT ppx-lovenox Full code Allergies: Coded Allergies: NO KNOWN ALLERGIES (11/15/15) Disposition Summary Disposition Principal Diagnosis: ACS Additional Diagnosis: 1. Diabetes Millitus. 2.Hypertension. 3. Hyperlipedemia. 4. Histroy of CVA Discharge Disposition: home or self care Discharge Instructions General Discharge Information Code Status: Full Code Patient's Diet: Heart healthy diet Patient's Activity: As tolerated Follow-Up Instructions/Appts: 1.Please follow up with your manager lvn in 1 week of discharge. 2. Please follow up with your PCP within 1 week of discharge. 3.Please take your meds as prescribed. Medications at Discharge Discharge Medications: Continue taking these medications: Dipyridamole W/ Aspirin (Aggrenox 25 MG-200 MG Capsule) 1 EACH CPMP.12HR 1 Capsule ORAL TWICE DAILY Qty = 180 Comments: Last Taken: 12/30/16 Time: 1:00 PM Metformin HCl (Metformin HCl) 500 MG TABLET 2 Tablet ORAL TWICE DAILY Qty = 180 Comments: NOT GIVEN Metoprolol Succinate (Metoprolol Succinate) 50 MG TAB.ER.24H 1 Tablet ORAL DAILY Qty = 90 Comments: Last Taken: 12/30/16 Time: 1:00 PM Insulin Glargine,Hum.rec.anlog (Lantus Solostar) 100 UNIT/ML (3 ML) INSULN.PEN 15 Unit Inject into fatty tissue TWICE DAILY Qty = 30 Comments: NOT GIVEN Losartan Potassium (Losartan Potassium) 25 MG TABLET 1 Tablet ORAL DAILY Qty = 90 Comments: Last Taken: 12/30/16 Time: 1:00 PM Atorvastatin Calcium (Atorvastatin Calcium) 80 MG TABLET 1 Tablet ORAL Every night Qty = 90 Comments: NOT GIVEN Amlodipine Besylate (Amlodipine Besylate) 10 MG TABLET 1 Tablet ORAL DAILY Qty = 90 Comments: Last Taken: 12/30/16 Time: 1:00 PM Aspirin (Ecotrin*) 81 MG TABLET. 2 Tablet ORAL DAILY Comments: Last Taken: 12/30/16 Time: 1:00 PM Copies To: DANIEL MCGHEE APRN; VIOLET MENDOZA,SHEILA Attending MD Review Statement Documenting Attending: SHEILA LAZO MD
--- NOTE | 2016-12-30 15:51 | NUCLEAR MEDICINE REPORT ---
EXERCISE STRESS AND RESTING SPECT MYOCARDIAL PERFUSION IMAGING STUDY WITH GATED SPECT IMAGES: CLINICAL INDICATION: Chest pain. PROCEDURE: Regional myocardial perfusion was assessed using a 1 day protocol. Stress images were obtained on 12/30/2016 following the intravenous administration of 24.6 mCi Tc 99m Myoview. Stress was performed using the standard Philip protocol, with the patient reaching a peak heart rate of 81% maximal predicted heart rate. Rest images were obtained 12/30/2016 following the intravenous administration of 34.9 mCi Technetium 99m Myoview. Single photon emission tomographic (SPECT) images were obtained. SPECT images were acquired in a 64 x 64 matrix of 64 projections over 180 degrees. These were reconstructed into standard short axis, horizontal and vertical long axis cardiac projections. FINDINGS: The post stress images show the left ventricular chamber to be normal in size. There is a moderately sized region of markedly diminished activity present that involves the apical septal and mid anteroseptal garza. There is an additional large perfusion defect present that extends from the apical lateral wall through the mid and basal segments of the inferolateral wall into the basal inferior wall. Activity in the other garza appears normal. The rest images do not appear significantly changed from the post stress images.e The stress images were obtained using a gated SPECT technique, which permits visualization of wall motion and calculation of the left ventricular ejection fraction. Moderately severe hypokinesis is present in the lateral and inferolateral garza and more severe hypokinesis is present in the basal inferior wall. In the mid and basal segments of the anterior wall show good wall motion. The calculated left ventricular ejection fraction is 41% on the stress study. No previous study is available for comparison. IMPRESSION: Markedly abnormal study. Fixed perfusion abnormalities are present in two separate foci, one involving the apical septal and mid anteroseptal agrza and the other involving the lateral, inferolateral and basal inferior garza. No regions of reversible ischemia are present. There are associated significant wall motion abnormalities most severely in the basal inferior wall. The left ventricular ejection fraction is mildly depressed.
--- NOTE | 2016-12-31 13:30 | ECHOCARDIOGRAM REPORT ---
WILMA MILLS Age: 61 : 1955 Gender: F Exam Date: 12/30/2016 09:56 Exam Location: 1 [address] Ht (in): 63 Wt (lb): 200 BSA: 2.05 BP: 130 / 80 Ordering Physician: MICHEL WALKER MD Referring Physician: MICHEL WALKER MD Technologist: Jeff Key [facility] Room Number: 173-1 Indications: Chest Pain Rhythm: Sinus Technical Quality: Fair FINDINGS Left Ventricle Normal size left ventricle. Mildly decreased LVEF of 45-50% Mild hypokinesis of the basal inferior and posterior wall. Abnormal relaxation filling pattern of the left ventricle for age (stage 1 diastolic dysfunction). Right Ventricle Normal right ventricular size and function. Right Atrium Normal right atrial size. Left Atrium Normal left atrial size. Mitral Valve Mild mitral annular calcification. Trace mitral regurgitation. Aortic Valve Structurally normal trileaflet aortic valve. No aortic stenosis. No aortic regurgitation. Tricuspid Valve Tricuspid valve not well visualized, grossly normal. Trace tricuspid regurgitation. Pulmonic Valve Pulmonic valve not well visualized, grossly normal. Pericardium No pericardial effusion. Great Vessels Normal size aortic root. CONCLUSIONS Normal size left ventricle. Mildly decreased LVEF of 45-50% Mild hypokinesis of the basal inferior and posterior wall. Abnormal relaxation filling pattern of the left ventricle for age (stage 1 diastolic dysfunction). Trace tricuspid regurgitation. Adam Carias M.D. (Electronically Signed) Final Date: 31 December 2016 13:29 MEASUREMENTS (Male / Female) Normal Values 2D ECHO LV Diastolic Diameter PLAX 5.4 cm 4.2 - 5.9 / 3.9 - 5.3 cm LV Systolic Diameter PLAX 3.8 cm 2.1 - 4.0 cm LV Fractional Shortening PLAX 29.6 % 25 - 46 % LV Ejection Fraction 2D Teich 56.2 % IVS Diastolic Thickness 1.1 cm LVPW Diastolic Thickness 1.3 cm LV Relative Wall Thickness 0.4 RV Internal Dim ED PLAX 2.8 cm 1.9 - 3.8 cm LVOT Diameter 2.3 cm Aortic Root Diameter 3.6 cm LA Systolic Diameter LX 2.5 cm 3.0 - 4.0 / 2.7 - 3.8 cm Ascending Aorta Diameter 3.8 cm DOPPLER AV Peak Velocity 105.0 cm/s AV Peak Gradient 4.4 mmHg AV Mean Velocity 80.1 cm/s AV Mean Gradient 3.0 mmHg AV Velocity Time Integral 24.4 cm LVOT Peak Velocity 67.7 cm/s LVOT Peak Gradient 1.8 mmHg LVOT Mean Velocity 42.6 cm/s LVOT Mean Gradient 1.0 mmHg LVOT Velocity Time Integral 15.1 cm LVOT Stroke Volume 62.7 cm AV Area Cont Eq vti 2.6 cm AV Area Cont Eq pk 2.7 cm MV Peak Velocity 89.6 cm/s MV Peak Gradient 3.2 mmHg MV Mean Velocity 54.5 cm/s MV Mean Gradient 1.0 mmHg Mitral E Point Velocity 74.0 cm/s Mitral A Point Velocity 95.8 cm/s Mitral E to A Ratio 0.8 MV PHT Velocity 69.2 cm/s MV Deceleration Mccurtain 234.0 cm/s MV Pressure Half Time 88.7 ms MV Area PHT 2.5 cm MV Deceleration Time 236.0 ms PV Peak Velocity 99.3 cm/s PV Peak Gradient 3.9 mmHg PV Mean Velocity 60.9 cm/s PV Mean Gradient 2.0 mmHg PV Velocity Time Integral 20.3 cm LV E' Lateral Velocity 7.1 cm/s Mitral E to LV E' Lateral Ratio 10.4 LV E' Septal Velocity 4.5 cm/s Mitral E to LV E' Septal Ratio 16.5
== END 2016-12-30 17:00 ==
LOC: ERH 21:36 → ERHI 23:36 → 1NO 23:36 → ENRESERV 23:54 → 1NO 12-30 00:57
PROVIDERS: Emergency Medicine; Internal Medicine; ADMIT Internal Medicine Cardiovascular Disease
DX: R07.9 Chest pain, unspecified (principal); I10 Essential (primary) hypertension; E78.5 Hyperlipidemia, unspecified; Z86.73 Personal history of transient ischemic attack (TIA), and cerebral infarction without residual deficits; I25.10 Atherosclerotic heart disease of native coronary artery without angina pectoris; I25.2 Old myocardial infarction; E11.9 Type 2 diabetes mellitus without complications; Z79.4 Long term (current) use of insulin
CPT/HCPCS: 6020; 36415; 78452; 81003; 82436; 93005; 93010; 93016; 93017; 93306; 96372; A9502; G0378; J1650; J3490